=== PATIENT | female | born 1950 | race Caucasian/White ===

== ENCOUNTER → 2017-07-19 18:22 | Outpatient (CLI) | payer MEDICARE ==
[2013-10-24 12:55] VITALS: BMI 23.1
[~2017-07-19 18:22] MED LIST: ALDACTONE25 MG PO; BAYER CHEWABLE81 MG PO; LANOXIN250 MCG PO; LASIX40 MG PO; LISINOPRIL2.5 MG PO; LOPRESSOR25 MG PO
== END ==
LOC: D.MAMMO 13:45
DX: Z12.31 Encounter for screening mammogram for malignant neoplasm of breast (principal)